=== PATIENT | female | born 1990 | race Two or more races ===

== ENCOUNTER 2023-06-25 10:21 | Emergency (ER) | payer OTHER ==
[~2023-06-25] VITALS: Ht 172.7 cm; Wt 110.5 kg
[2023-06-25 11:15] VITALS: PULSE 72; RESP 17; O2SAT 97
[2023-06-25] MEDS ORDERED: SODIUM CHLORIDE 0.9% 1,000 ML IV ONE (12:00)
[2023-06-25] MEDS ORDERED: SODIUM CHLORIDE 0.9% 500 ML IVB ONE (12:00)
[2023-06-25] MEDS ORDERED: METOCLOPRAMIDE HCL 5MG/ml INJ 2ml VIAL IV ONE (12:00)
[2023-06-25] MEDS ORDERED: KETOROLAC TROMETH 30 MG/ML 1ML VIAL IV ONE (12:00)
[2023-06-25 13:08] LABS: Basophils # (auto) 0.1 10 ^3/uL (0-0.2); Eosinophils # (auto) 0.2 10 ^3/uL (0-0.8); Eosinophils % (auto) 1.2 % (0.0-7.0); Hemoglobin 12.2 g/dL (12.2-16.2); Red Cell Distribution Width 15.2 % (11.8-14.3)
[2023-06-25 13:11] LABS: Urine Bacteria FEW /hpf (None Seen); Urine Blood Negative /uL (Negative); Urine Clarity Clear (Clear); Urine Color Yellow (Yellow); Urine Protein, UAD TRACE (Negative); Urine Urobilinogen Normal (Negative); Urine WBC 7 /hpf (0 - 5)
[2023-06-25 13:11] LABS: Basophils % (auto) 0.6 % (0.0-2.0); Lymphocytes # (auto) 3.4 10 ^3/uL (0.4-5.4); Lymphocytes % (auto) 23.9 % (10.0-50.0); Mean Corpuscular Hemoglobin 27.1 pg (28.0-32.0); Mean Corpuscular Hgb Conc. 32.9 g/dL (32.0-36.0); Mean Corpuscular Volume 82.5 fL (80.0-100.0); Monocytes # (auto) 0.7 10 ^3/uL (0-1.3); Monocytes % (auto) 4.9 % (0.0-12.0); Neutrophils % (auto) 69.4 % (37.0-80.0); Red Blood Cells 4.49 10^6/uL (4.0-5.20); White Blood Cell 14.4 10^3/uL (4.4-10.8)
[2023-06-25 13:26] LABS: Alanine Aminotransferase 21 U/L (7-40); Alkaline Phosphatase 90 U/L (46-116); Anion Gap 10 (5-15); BUN/Creatinine Ratio 10.3 (10.0-20.0); Blood Urea Nitrogen 9 mg/dL (9-23); Calcium 9.3 mg/dL (8.7-10.4); Carbon Dioxide 24 mmol/L (20-30); Chloride 107 mmol/L (98-107); Glucose 81 mg/dL (74-106); Lipase 27 U/L (12-53); Magnesium 2.1 mg/dL (1.6-2.6); Potassium 4.3 mmol/L (3.5-5.1); Sodium 141 mmol/L (136-145)
[2023-06-25 13:27] LABS: Albumin 4.7 g/dL (3.2-4.8); Aspartate Aminotransferase 11 U/L (13-40); Bilirubin, Total 0.3 mg/dL (0.2-1.0); Partial Thromboplastin Time 26.7 SEC (24.5-34.5); Prothrombin Time 10.5 sec (9.3-11.8); Total Protein 6.9 g/dL (5.7-8.2)
[2023-06-25] MEDS ORDERED: HYDR-4902 PO (13:50)
[2023-06-25] MEDS ORDERED: PANT1INJ3 IV (13:50)
[2023-06-25] MEDS ORDERED: METO-281 PO (13:50)
[2023-06-25] MEDS ORDERED: DOXY100C PO (13:50)
[2023-06-25 14:03] VITALS: BP 136/86; PULSE 72; RESP 18; TEMP 98.6; O2SAT 99
== END 2023-06-25 14:04 | disposition home or self-care (01) ==
LOC: EDBD 10:21 → ER 10:21
DX: R10.11 Right upper quadrant pain (principal); R10.2 Pelvic and perineal pain; K76.0 Fatty (change of) liver, not elsewhere classified; R82.71 Bacteriuria; F17.210 Nicotine dependence, cigarettes, uncomplicated; F12.10 Cannabis abuse, uncomplicated; Z79.899 Other long term (current) drug therapy
CPT/HCPCS: 36415; 76705; 80053; 81001; 83690; 83735; 84702; 85025; 85610; 85730; 96361; 96374; 96375; 99285; J1885; J2765; J7030; J7040